=== PATIENT | female | born 1995 | race African-American/Black ===

== ENCOUNTER 2018-03-13 22:02 | Emergency (ER) | payer OTHER ==
--- NOTE | 2018-03-13 22:42 | ED Physician Documentation ---
General Adult - HISTORIAN Historian: patient - HPI Stated Complaint: Vomiting blood Chief Complaint: General Adult Additional Information: Says she was eating supper and suddenly threw up and the vomitus turned to blood. Denies nausea now. Has heartburn. Had hyperemesis gravidarum but that ended 6 weeks ago. No current nausea, no cramping or spotting. Feels baby moving. Has urinated as often as usual today. No other modifying factors or associated signs. - ROS CONST: no problems - PAST HX Past History: none Allergies/Adverse Reactions: Allergies Allergy/AdvReac Type Severity Reaction Status Date / Time No Known Allergies Allergy Unverified 03/13/18 22:24 Home Medications: Ambulatory Orders Medication Instructions Recorded Vit/Iron Fum/Folic AC 1 tab PO DAILY 03/13/18 [ Tablet] - SOCIAL HX Smoking History: non-smoker - FAMILY HX Family History: Yes (cancer; M with hypertension) - VITAL SIGNS Vital Signs: Vital Signs Temp Pulse Resp BP Pulse Ox 97.8 F 84 16 107/39 99 03/13/18 22:10 03/13/18 22:10 03/13/18 22:10 03/13/18 22:10 03/13/18 22:10 - REVIEWED ASSESSMENTS Nursing Assessment Reviewed: Yes Vitals Reviewed: Yes ED Results Lab/Radiology - Orders Orders: ED Orders Category Date Time Status Mag Hydrox/Aluminum Hyd/Simeth [Mylanta] Med 03/13/18 22:38 Once 30 ml PO NOW ONE General Adult Physical Exam - PHYSICAL EXAM GENERAL APPEARANCE: no distress EENT: eye inspection normal, ENT inspection normal, pharynx normal, no signs of dehydration NECK: normal inspection, supple RESPIRATORY: no resp distress, breath sounds normal CVS: reg rate & rhythm, heart sounds normal ABDOMEN: soft (gravid), normal bowel sounds BACK: normal inspection, no CVA tenderness SKIN: warm/dry, normal color EXTREMITIES: no evidence of injury, no edema NEURO: CN's nml as tested, motor nml, sensation nml, cognition normal Discharge Clincal Impression: Vomiting Qualifiers: Vomiting type: unspecified Vomiting Intractability: non-intractable Nausea presence: without nausea Qualified Code(s): R11.11 - Vomiting without nausea Referrals: Primary Doctor,No [Primary Care Provider] - 2 Days Condition: Good Disposition: 01 HOME, SELF-CARE Decision to Admit: NO Decision Time: 22:53
[2018-03-13] MEDS: MAG HYDROX/ALUMINUM HYD/SIMETH 30 ML UDC PO ONE (22:45)
[2018-03-13 23:05] VITALS: BP 100/40
== END 2018-03-13 23:00 | disposition home or self-care (01) ==
LOC: ED 22:02
DX: R11.11 Vomiting without nausea (principal)
CPT/HCPCS: 99282